=== PATIENT | male | born 1955 | race Caucasian/White ===

== ENCOUNTER 2017-05-11 12:06 | Outpatient (CLI) ==
[2013-04-20 14:08] VITALS: BMI 30.4
[2017-05-11 12:22] LABS: BASOPHILS # (AUTO) 0.1 K/uL (0-0.2); BASOPHILS % (AUTO) 0.8 % (0.0-3.0); EOSINOPHILS # (AUTO) 0.2 K/ul (0.0-0.7); HEMATOCRIT 53.5 % (42.0-52.0); HEMOGLOBIN 18.5 g/dl (14.0-18.0); IMMATURE GRANULOCYTE % (AUTO) 0.2 % (0.0-5.0); LYMPHOCYTES # (AUTO) 3.1 K/uL (0.60-3.4); LYMPHOCYTES % (AUTO) 36.9 (10.0-50.0); MEAN CORPUSCULAR HEMOGLOBIN 30.1 pg (27.0-31.0); MEAN CORPUSCULAR HGB CONC 34.6 (31.8-35.4); MEAN CORPUSCULAR VOLUME 87.1 fl (80.0-94.0); MONOCYTES # (AUTO) 0.6 K/uL (0.4-2.0); MONOCYTES % (AUTO) 6.5 (0-10); NEUTROPHILS # (AUTO) 4.5 K/ul (2.0-6.9); NEUTROPHILS % (AUTO) 53.6; PLATELET COUNT 150 10^3/uL (140-440); RED BLOOD COUNT 6.14 10^6/ul (4.70-6.10); WHITE BLOOD COUNT 8.42 K/ul (4.2-10.2)
== END 2017-05-11 12:07 | disposition home or self-care (01) ==
LOC: LAB 12:06
PROVIDERS: ATTEND Internal Medicine
DX: D75.1 Secondary polycythemia (principal)
CPT/HCPCS: 36415; 85025

== ENCOUNTER 2017-05-16 10:45 | Outpatient (CLI) ==
[2013-04-20 14:08] VITALS: BMI 30.4
[2017-05-16 11:21] LABS: HEMATOCRIT 53.2 % (42.0-52.0); HEMOGLOBIN 18.9 g/dl (14.0-18.0); MEAN CORPUSCULAR HEMOGLOBIN 30.7 pg (27.0-31.0); MEAN CORPUSCULAR HGB CONC 35.5 (31.8-35.4); MEAN CORPUSCULAR VOLUME 86.4 fl (80.0-94.0); RED BLOOD COUNT 6.16 10^6/ul (4.70-6.10); WHITE BLOOD COUNT 7.55 K/ul (4.2-10.2)
== END 2017-05-16 10:46 | disposition home or self-care (01) ==
LOC: LAB 10:45
PROVIDERS: ATTEND Internal Medicine
DX: D75.1 Secondary polycythemia (principal)
CPT/HCPCS: 36415; 85027; 99195

== ENCOUNTER 2018-11-06 12:19 | Outpatient (CLI) ==
[2013-04-20 14:08] VITALS: BMI 30.4
--- NOTE | 2018-11-06 13:23 | DI ---
EXAM: CHEST FRONTAL AND LATERAL VIEWS HISTORY: Cough. COMPARISON: 04/30/2013 FINDINGS: Heart size and mediastinal contour remain within normal limits. Sternotomy wires are ag ain noted. No acute infiltrates are seen. No vascular congestion. There is no consolidation, visib le pleural fluid or pneumothorax. Bones reveal no acute fracture. IMPRESSION: No acute cardiopulmonary process.
--- NOTE | 2018-11-06 13:25 | DI ---
EXAM: LEFT SHOULDER HISTORY: Shoulder pain FINDINGS: Left shoulder three-view. Bone and joint structures are within normal limits. There is n o joint dislocation or fracture identified. Bone density and soft tissues are unremarkable. IMPRESSION: Within normal limits.
--- NOTE | 2018-11-06 13:32 | DI ---
EXAM: CERVICAL SPINE, 3 VIEWS HISTORY: Neck pain. FINDINGS: Normal bone density. No scoliosis. Lateral masses of C1 and C2 are normally aligned and the odontoid process is intact. Mild degenerative disc disease at C5/C6 including minimal posterior osteophytic spurring and greater anterior spurring. Facet joints appear normal. Normal prevertebra l soft tissue thickness. There is a linear, 2 cm focus of calcification posteriorly at the lower cer vical level which may represent dystrophic calcification within the nuchal ligament. IMPRESSION: 1. Mild degenerative disc disease at C5/C6.
== END 2018-11-06 12:20 | disposition home or self-care (01) ==
LOC: RAD 12:19
PROVIDERS: ATTEND Internal Medicine
DX: R05 Cough (principal); M54.2 Cervicalgia